=== PATIENT | female | born 1960 | race Caucasian/White ===

== ENCOUNTER 2017-11-18 19:51 | Emergency (ER) | payer OTHER | END 2017-11-18 22:18 | disposition home or self-care (01) | LOC: D.ER 19:51 | DX: S60.211A Contusion of right wrist, initial encounter (principal); S50.01XA Contusion of right elbow, initial encounter; W01.0XXA Fall on same level from slipping, tripping and stumbling without subsequent striking against object, initial encounter; Y93.89 Activity, other specified; Y92.019 Unspecified place in single-family (private) house as the place of occurrence of the external cause; I10 Essential (primary) hypertension ==

== ENCOUNTER 2020-05-05 08:30 | Emergency (ER) | payer OTHER ==
[~2020-05-05] VITALS: Ht 177.8 cm; Wt 93.2 kg
[2020-05-05 08:35] VITALS: Ht 177.8 cm; Wt 93.2 kg
[2020-05-05] MEDS ORDERED: PRINIVIL10 MG PO (08:37)
[2020-05-05] MEDS ORDERED: TOZAL SOFTGEL1 EACH PO (08:37)
[2020-05-05 09:01] LABS: BASOPHILS 0.4 % (0-2); EOSINOPHILS 4.1 % (0-7); HEMATOCRIT 43.3 % (36.0-48.0); HEMOGLOBIN 14.3 g/dL (12-16); IMMATURE GRANULOCYTES 0.3 % (0-5); LYMPHOCYTES 34.3 % (15-50); MCV 96.9 fL (80.0-100.0); MEAN PLATELET VOLUME 9.4 fL (7.4-10.4); MONOCYTES 10.1 % (2-11); NEUTROPHILS 50.8 % (40-80); PLATELET COUNT 264 10x3/uL (130-400); RBC 4.47 10x6/uL (4.00-5.40); RDW 12.7 % (11.5-14.5); WBC 6.9 10x3/uL (4.8-10.8)
[2020-05-05 09:18] LABS: ANION GAP 7.4 mmol/L (8-16); CALCIUM 9.6 mg/dL (8.5-10.1); CARBON DIOXIDE 30.5 mmol/L (21.0-32.0); POTASSIUM - SERUM 3.9 mmol/L (3.5-5.1)
[2020-05-05 09:20] LABS: BILIRUBIN NEGATIVE (NEGATIVE); GLUCOSE NEGATIVE (NEGATIVE); KETONE NEGATIVE (NEGATIVE); NITRITE NEGATIVE (NEGATIVE); UROBILINOGEN NORMAL (NORMAL)
[2020-05-05 09:23] LABS: BACTERIA FEW /hpf (NEGATIVE); EPITHELIAL CELLS OCC /hpf (0-5); WHITE CELLS - URINE 0-5 /hpf (NEGATIVE)
[2020-05-05 09:23] LABS: ALBUMIN 4.1 g/dL (3.4-5.0); BILIRUBIN - TOTAL 0.88 mg/dL (0.2-1.3); PROTEIN - SERUM 7.3 g/dL (6.4-8.2)
[2020-05-05 09:30] LABS: INR 0.96 (0.85-1.17); PROTIME 12.8 SECONDS (11.6-15.0)
[2020-05-05 09:31] LABS: APTT 28.7 SECONDS (22.8-39.4)
[2020-05-05] MEDS ORDERED: MACROBID100 MG PO (09:49)
[2020-05-05 10:18] VITALS: BP 125/91
== END 2020-05-05 10:02 | disposition home or self-care (01) ==
LOC: D.ER 08:30
PROVIDERS: Family Medicine
DX: N34.2 Other urethritis (principal); N93.9 Abnormal uterine and vaginal bleeding, unspecified; I10 Essential (primary) hypertension